=== PATIENT | female | born 1945 | race Caucasian/White ===

== ENCOUNTER 2023-11-30 06:53 | Day surgery (SDC) | payer OTHER, BC ==
[2023-11-28 14:37] LABS: Absolute Lymphocytes (CBC) 3.4 K/uL (0.7-4.9); Hematocrit 35.1 % (36.0-45.0); Lymphocytes % 36.3 % (15.3-44.8); MCV 95.5 fL (80-100); MPV 7.6 fL (7.6-11.3); Platelets 225 thou/uL (152-406); RBC Red Blood Cell Count 3.67 M/uL (3.86-4.86)
[2023-11-28 14:48] LABS: Protime INR 1.1
[2023-11-28 14:58] LABS: Potassium 4.2 mEq/L (3.5-5.1)
--- NOTE | 2023-11-28 20:51 | RAD REPORT ---
EXAM DESCRIPTION: RAD - Chest Pa And Lat (2 Views) - 11/28/2023 2:03 pm CLINICAL HISTORY: Pre op pending heart catheterization. Hypertension COMPARISON: < none available TECHNIQUE: PA and lateral views of the chest were obtained. FINDINGS: The lungs are clear. Heart size is normal and central vasculature is within normal limits. No pleural effusion or pneumothorax seen. No acute bony finding noted. IMPRESSION: No acute cardiopulmonary process.
[2023-11-30] MEDS ORDERED: HEPA 1000U/500MLS 2,000 UNIT/1,000 ML BAG IV ONE (06:57)
[2023-11-30] MEDS ORDERED: MIDAZOLAM HCL 2 MG/2 ML INJ ONE (06:58)
[2023-11-30] MEDS ORDERED: VERAPAMIL HCL 10 MG/4 ML VIAL IV ONE (06:58)
[2023-11-30] MEDS ORDERED: LIDOCAINE 1% 20 ML MDV ONE (06:58)
[2023-11-30] MEDS ORDERED: FENTANYL CITR 100 MCG/2 ML ONE (06:58)
[2023-11-30] MEDS ORDERED: CLOPIDOGREL 75 MG TABLET ONE (06:59)
[2023-11-30] MEDS ORDERED: ATROPINE SULF 1 MG/10 ML SYR IV ONE (06:59)
[2023-11-30] MEDS ORDERED: TICAGRELOR 90 MG TABLET PO ONE (06:59)
[2023-11-30] MEDS ORDERED: HEPARIN 10,000 UNIT/10 ML VIAL IV ONE (06:59)
[2023-11-30] MEDS ORDERED: HEPARIN 5000 UNIT/ML 1 ML VIAL ONE (06:59)
[2023-11-30] MEDS ORDERED: ASPIRIN 325 MG TAB ONE (07:00)
[2023-11-30] MEDS ORDERED: NITROGLYCERIN/D5W 25 MG/250 ML BTL IV ONE (07:01)
[2023-11-30] MEDS ORDERED: NA CHLORIDE 0.9% 500 ML ONE (07:15)
[2023-11-30 09:30] VITALS: TEMP 97.8
[2023-11-30 10:43] VITALS: BP 136/66; O2SAT 95
--- NOTE | 2023-12-01 13:37 | EKG ---
Test Date: 2023-11-28 Test Time: 14:36:10 [employer]: TIESHA MEASUREMENT RESULTS: Intervals: Rate: 58 [place]: 170 QRSD: 80 QT: 414 QTc: 406 Taylor: P: 33 [place]: 170 QRS: -22 T: 76 INTERPRETIVE STATEMENTS: Sinus bradycardia with premature atrial complexes Otherwise normal ECG No previous ECG available for comparison Electronically Signed On 12-01-23 13:25:20 FEATHER MAKER by Tray Padilla
== END 2023-11-30 10:29 | disposition home or self-care (01) ==
LOC: CCL 06:53
PROVIDERS: ATTEND Internal Medicine
DX: I25.10 Atherosclerotic heart disease of native coronary artery without angina pectoris (principal); I25.82 Chronic total occlusion of coronary artery; I10 Essential (primary) hypertension; E11.9 Type 2 diabetes mellitus without complications; E78.2 Mixed hyperlipidemia; Z79.82 Long term (current) use of aspirin; Z79.899 Other long term (current) drug therapy; Z82.49 Family history of ischemic heart disease and other diseases of the circulatory system
CPT/HCPCS: 93005; 85025; 80048; 36415; 83721; 85610; 82947; 85730; 71046; 93458; 76937; C1893; Q9966; J1644; J2001; J7040; J0461; J2250; J3010